=== PATIENT | male | born 1950 | race Caucasian/White ===

== ENCOUNTER 2018-03-26 02:23 | Inpatient (IN) | payer MEDICARE, OTHER ==
[2018-03-26] MEDS ORDERED: NORMAL SALINE 1000 ML 1,000 ML IV ONE (02:43)
[2018-03-26] MEDS ORDERED: DILTIAZEM HCL INJ 25 MG/5 ML VIAL IV ONE ×2 (02:44→04:35)
--- NOTE | 2018-03-26 02:50 | ER Document Report ---
ED General <CATIE BUCK E - Last Filed: 03/26/18 07:19> - General TRAVEL OUTSIDE OF THE [place] IN LAST 30 DAYS: No <IJEOMA COLON - Last Filed: 03/26/18 23:56> - General Chief Complaint: Abdominal Pain Stated Complaint: ABDOMINAL PAIN Time Seen by Provider: 03/26/18 02:36 Notes: Patient is a 67-year-old male presents with complaint of sudden onset severe upper abdominal pain. No chest pain. Pain is mostly epigastric and left upper quadrant. Patient says he feels with her kidney stone disease has more pain in the past with kidney stones. No fevers. Some nausea. No vomiting. No diarrhea. No other complaints at this time. He also presents with atrial fibrillation with rapid ventricular response. He is never had this before. Denies any chest pain associated with this. No other complaints at this time. He received a total of 200 mcg of fentanyl in the ambulance and says his pain is still severe. (IJEOMA COLON) - Related Data Allergies/Adverse Reactions: Penicillins Allergy (Verified 03/26/18 11:45) SWELLING Sulfa (Sulfonamide Antibiotics) Allergy (Verified 03/26/18 11:45) SWELLING Past Medical History - Social History Smoking Status: Unknown if Ever Smoked Frequency of alcohol use: None Drug Abuse: None Family History: Reviewed & Not Pertinent <IJEOMA COLON - Last Filed: 03/26/18 23:56> Review of Systems <CATIE BUCK E - Last Filed: 03/26/18 07:19> <IJEOMA COLON - Last Filed: 03/26/18 23:56> - Review of Systems Notes: My Normal Review Basic REVIEW OF SYSTEMS: CONSTITUTIONAL : Denies fever, chills, or sweats. Denies recent illness. EENT: Denies eye, ear, throat, or mouth pain or symptoms. Denies nasal or sinus congestion. CARDIOVASCULAR: No chest pain RESPIRATORY: Denies cough, cold, or chest congestion. Denies shortness of breath, difficulty breathing, or wheezing. GASTROINTESTINAL: Upper abdominal pain. Some nausea GENITOURINARY: Denies difficulty urinating, painful urination, burning, frequency, or blood in urine. MUSCULOSKELETAL: Denies neck or back pain or joint pain or swelling. SKIN: Denies rash or skin lesions. NEUROLOGICAL: Denies altered mental status or loss of consciousness. Denies headache. Denies weakness or paralysis or loss of use of either side. Denies problems with gait or speech. Denies sensory or motor loss. ALL OTHER SYSTEMS REVIEWED AND NEGATIVE. (IJEOMA COLON) Physical Exam <CATIE BUCK - Last Filed: 03/26/18 07:19> <IJEOMA COLON - Last Filed: 03/26/18 23:56> - Vital signs Vitals: Pulse Ox 96 03/26/18 02:29 - Notes Notes: General Appearance: Well nourished, alert, cooperative, no acute distress, moderate to severe obvious discomfort. Vitals: reviewed, See vital signs table. Head: no swelling or tenderness to the head Eyes: PERRL, EOMI, Conjuctiva clear Mouth: No decreasd moisture Throat: No tonsillar inflammation, No airway obstruction, No lymphadenopathy Lungs: No wheezing, No rales, No rhonci, No accessory muscle use, good air exchange bilaterally. Heart: Normal rate, Regular rythm, No murmur, no rub Abdomen: Normal BS, soft, No rigidity, palpating patient's abdomen does not make the pain any worse., No guarding, no rebound, no abdominal masses, no organomegaly Extremities: strength 5/5 in all extremities, good pulses in all extremities, no swelling or tenderness in the extremities, no edema. Skin: warm, dry, appropriate color, no rash Neuro: speech clear, oriented x 3, normal affect, responds appropriately to questions. (IJEOMA COLON) Course - Laboratory Result Diagrams: 03/26/18 03:20 03/26/18 03:20 <CATIE BUCK - Last Filed: 03/26/18 07:19> - Laboratory Result Diagrams: 03/26/18 11:34 03/26/18 03:20 <IEJOMA COLON - Last Filed: 03/26/18 23:56> - Re-evaluation Re-evalutation: 03/26/18 07:[address] Arreguin (Hospitalist) and he has accepted patient to IMCU. Pt's HR in 110's-120's while on diltiazem 20 mg/hr. BP remains normal and pain controlled. Will add an additional dose of lopressor. (CATIE BUCK) 03/26/18 02:48 Patient has severe abdominal pain that is still hurting despite receiving 200 mcg fentanyl from the ambulance. He also is in atrial fibrillation with rapid ventricular response. He has no previous history of A. fib. Correlation of these to make me concerned for possible ability of ischemic event or even dissection. I therefore ordered a CTA of the chest abdomen pelvis. Patient and his say that he has no history of any type of kidney disease and is followed primary care doctor. I informed him my concerns and the need to do CT scan they are agreeable to it. I have informed the nurse who will go immediately to place a antecubital IV and start IV fluids and taken to CT scan. Cardizem has been ordered as well. EKG does not show any signs of WA at this time. 03/26/18 04:29 CT scan is just above my concern for embolization type pathology. Patient has some evidence of enteritis in the left upper quadrant as well as some evidence of infarction to the right kidney. I did discuss case with Dr. Conteh reviewed the images and is evaluating the patient. He recommends patient placed on a heparin drip. At this time his lactic acid is normal and it is unlikely he will be going through any immediate surgery and therefore heparin drip will be started. The nurse is getting the patient's weight so we can start the heparin bolus and drip appropriately. 03/26/18 06:32 Patient's is Alexi Humphries. Her phone number is [phone]. 03/26/18 23:56 I reevaluated the patient. We are still waiting for bed availability at [facility]. He says his pain is absolutely gone. He looks and feels well. His heart rate is controlled between 90 and 110. Blood pressure is good at 130/84. Informed patient if he has any recurrence of pain or feels unwell at to let me know immediately. Patient agrees and has no further complaints at this time. Dictation of this chart was performed using voice recognition software; therefore, there may be some unintended grammatical errors. (IJEOMA COLON) - Vital Signs Vital signs: Temp Pulse Resp BP Pulse Ox 98.9 F 97 13 120/70 98 03/26/18 23:06 03/26/18 10:41 03/26/18 23:11 03/26/18 23:11 03/26/18 23:11 - Laboratory Laboratory results interpreted by me: 03/26/18 03/26/18 03/26/18 03:20 03:20 03:20 WBC 12.3 H RBC 4.03 L Hgb 13.0 L Plt Count 527 H Seg Neutrophils % 87.6 H Lymphocytes % 7.0 L Absolute Neutrophils 10.8 H Glucose 148 H NT-Pro-B Natriuret Pep 5920 H Albumin 3.3 L Urine Glucose (UA) Urine Ketones Urine Blood 03/26/18 05:10 WBC RBC Hgb Plt Count Seg Neutrophils % Lymphocytes % Absolute Neutrophils Glucose NT-Pro-B Natriuret Pep Albumin Urine Glucose (UA) 50 H Urine Ketones 20 H Urine Blood SMALL H - EKG Interpretation by Me Additional EKG results interpreted by me: 03/26/18 02:50 EKG is reviewed and interpreted by me. EKG shows A. fib with RVR with rate of [address] segment elevation or depression. QRS duration QTc intervals are within normal range. No old EKG available for comparison. (IJEOMA COLON) Discharge - Discharge Admitting Provider: Hospitalist - [facility] Unit Admitted: IMCU <CATIE BUKC - Last Filed: 03/26/18 07:19> <IJEOMA COLON - Last Filed: 03/26/18 23:56> - Discharge Clinical Impression: Atrial fibrillation with rapid ventricular response, Ischemia of kidney, Acute abdominal pain Condition: Stable Disposition: ADMITTED INPATIENT
[2018-03-26] MEDS ORDERED: FENTANYL CITRATE INJ/PF 100 MCG/2 ML AMPUL IV ONE ×3 (03:25→04:35)
--- NOTE | 2018-03-26 03:25 | RADIOLOGY REPORT (SQ) ---
EXAM DESCRIPTION: XR CHEST 1 VIEW COMPLETED DATE/TME: 03/26/2018 02:43 CLINICAL HISTORY: upper abdominal pain COMPARISON: None available FINDINGS: Single frontal view of the chest. Atherosclerotic calcification and tortuosity of the thoracic aorta. Cardiomegaly. Leads overlie the chest. No consolidation, pneumothorax, or pleural effusion. Healed left rib fractures. Upper abdominal soft tissues are unremarkable. IMPRESSION: 1. No acute pulmonary process identified. Cardiomegaly.
[2018-03-26 03:37] LABS: ABSOLUTE LYMPHOCYTES (AUTO) 0.9 10^3/uL (0.5-4.7); ABSOLUTE MONOCYTES (AUTO) 0.6 10^3/uL (0.1-1.4); ABSOLUTE NEUT (AUTO) 10.8 10^3/uL (1.7-8.2); BASOPHILS % (AUTO) 0.3 % (0-2); HEMATOCRIT 38.1 % (37.9-51.0); MEAN CORPUSCULAR HEMOGLOBIN 32.3 pg (27.0-33.4); MEAN CORPUSCULAR HGB CONC 34.3 g/dL (32.0-36.0); MEAN CORPUSCULAR VOLUME 94 fl (80-97); MONOCYTES % (AUTO) 5.1 % (3-13); PLATELET COUNT 527 10^3/uL (150-450); RED BLOOD COUNT 4.03 10^6/uL (4.35-5.55); RED CELL DISTRIBUTION WIDTH 13.3 % (11.5-14.0); SEGMENTED NEUTROPHILS % (AUTO) 87.6 % (42-78); TOTAL CELLS COUNTED % (AUTO) 100 %; WHITE BLOOD COUNT 12.3 10^3/uL (4.0-10.5)
[2018-03-26] MEDS ORDERED: HYDROMORPHONE HCL INJ/PF 2 MG/ML AMPULE IV ONE (03:42)
[2018-03-26 03:52] LABS: ALANINE AMINOTRANSFERASE 25 U/L (21-72); ALBUMIN 3.3 g/dL (3.5-5.0); ALKALINE PHOSPHATASE 54 U/L (38-126); ANION GAP 11 (5-19); ASPARTATE AMINO TRANSFERASE 22 U/L (17-59); BILIRUBIN,DIRECT 0.3 mg/dL (0.0-0.4); BILIRUBIN,TOTAL 0.4 mg/dL (0.2-1.3); BLOOD UREA NITROGEN 14 mg/dL (7-20); CALCIUM 8.9 mg/dL (8.4-10.2); CARBON DIOXIDE 30 mmol/L (22-30); CHLORIDE 98 mmol/L (98-107); GLUCOSE 148 mg/dL (75-110); LIPASE 40.4 U/L (23-300); POTASSIUM 3.9 mmol/L (3.6-5.0); SODIUM 139.4 mmol/L (137-145); TOTAL PROTEIN 6.3 g/dL (6.3-8.2)
--- NOTE | 2018-03-26 03:55 | RADIOLOGY REPORT (SQ) ---
EXAM DESCRIPTION: CT ABDOMEN PELVIS WITH IV CONTRAST, CT CHEST ANGIOGRAPHY WITH IV CONTRAST COMPLETED DATE/TME: 03/26/2018 02:43 CLINICAL HISTORY: severe pain COMPARISON: None Available. TECHNIQUE: CTA of the chest, abdomen and pelvis performed following IV administration of 100 mL of Isovue-370. 3-D/MIP reformatted images available. Delayed images of the abdomen obtained. DLP: 1524.42 mGycm FINDINGS: Bones: No destructive bone lesions identified. FINDINGS: CTA: Measurements: Ascending thoracic aorta 3.9 cm Aortic arch: 3.0 cm. Mid descending thoracic aorta: 3.3 cm Infrarenal abdominal aorta: 2.3 cm. Mild atherosclerotic plaque of the thoracic aorta without evidence of dissection, penetrating ulcer, or intramural hematoma. There is in-line flow from the abdominal aorta into the common iliac, external iliac, and common femoral arteries without evidence of occlusion or stenosis. The origins of the great vessels are patent. The visualized celiac artery has normal branch pattern without evidence of stenosis. Superior mesenteric artery is widely patent. Replaced right hepatic artery. The origins of the renal arteries are widely patent. No definite accessory renal arteries identified. No visceral and renal artery pseudoaneurysm identified. Chest: Thyroid:No abnormalities of the visualized thyroid. Pulmonary arteries: The main pulmonary artery is dilated. No pulmonary embolus identified. Heart: Cardiomegaly with coronary artery atherosclerosis. No significant pericardial effusion. Lymph Nodes:No enlarged mediastinal lymph nodes identified. Esophagus: Small hiatal hernia. Other:No additional findings. Lungs: Minimal dependent atelectasis. No lobar consolidation. Pleura:No pleural effusion or pneumothorax. Trachea/Airways:No abnormalities of the visualized trachea or airways. Abdomen: Liver: The liver has normal size and density. No intrahepatic mass or biliary dilatation. Gallbladder: Cholelithiasis. Spleen, Pancreas, and Adrenal Glands: The spleen, pancreas, and adrenal glands are unremarkable. Kidneys: There are irregular wedge-shaped areas of hypodensity throughout the right kidney. Bosniak class I left renal cysts. Vasculature: IVC is unremarkable. Stomach: The stomach and duodenum have normal course. Other: No free intraperitoneal air. No free fluid or lymphadenopathy. Pelvis: Bladder: Urinary bladder is unremarkable. Bowel: Scattered diverticula throughout the colon. No pericolic fat stranding. No dilated loops of large or small bowel. Short segment wall thickening of a loop of small bowel in the left upper abdomen with adjacent inflammatory change. The colon is not well evaluated due to underdistention. Appendix: Normal appendix. Pelvis: Prostate is not enlarged. IMPRESSION: 1. Wedge-shaped areas of hypodensity throughout the right kidney are concerning for ischemic necrosis or late changes of pyelonephritis. Given degree of liquefaction early abscess formation is a possibility however no well-circumscribed thick-walled fluid collection identified at this time. 2. Short segment of wall thickening with adjacent inflammatory change of small bowel in the left upper abdomen concerning for enteritis. This could be of infectious, inflammatory, or ischemic etiology. 3. Diverticulosis without evidence of acute diverticulitis. 4. Cholelithiasis. 5. Coronary artery atherosclerosis and cardiomegaly. 6. No pulmonary embolus. 7. No evidence of aortic dissection or aneurysm. This exam was performed according to our departmental dose-optimization program, which includes automated exposure control, adjustment of the mA and/or kV according to patient size and/or use of iterative reconstruction technique.
[2018-03-26] MEDS ORDERED: DILTIAZEM HCL INJ 25 MG/5 ML VIAL ONE (04:40)
[2018-03-26] MEDS ORDERED: HEPARIN SODIUM,PORCINE/D5W 25,000 UNIT/250 ML RTUINJ IV PRN (04:43)
[2018-03-26] MEDS ORDERED: HEPARIN SOD (PORCINE) 1,000 UNIT/ML 10 ML VIAL IV ONE ×2 (04:43→05:04)
[2018-03-26] MEDS: DILTIAZEM HCL/D5W 125 MG/125 ML RTUINJ IV PRN ×3 (04:50→20:10)
[2018-03-26] MEDS ORDERED: METOPROLOL TARTRATE PF/INJ 5 MG/5 ML SDV IV ONE ×3 (05:09→07:25)
--- NOTE | 2018-03-26 05:14 | PDOC CONSULTATION ---
Consultation Consult Date: 03/26/18 Consult reason:: Rule out ischemic intestines History of Present Illness Admission Date/PCP: VIRGILIO ASTUDILLO Patient complains of: Abdominal pain History of Present Illness: ISAAC JO is a 67 year old male The patient is a 67-year-old white male, originally from [place], living his needs very was brought to the emergency department by ground rescue complaining of intense left upper quadrant abdominal pain. The patient is interviewed by Dr. Conthe after he is receiving fentanyl so the encounter is limited in that regard. According to the patient and the patient's the patient had been in his usual state of good health, walking 1-1/2 miles a day participating in therapy sessions when he developed weakness, tunnel vision, and some lethargy. This was also associated with episodes of right upper quadrant pain. The symptoms lasted for approximately 2 and half days. Also associated with nausea and vomiting. He was seen by primary care physician's needs very, and arrangements were made for him to get worked up for possible gallbladder disease later this week. Patient's symptoms improved then last night approximately 10 PM he developed initially right upper quadrant pain that then radiated to the left upper quadrant. Last bowel movement yesterday. Since pain did not relieve an emergency rescue was called. In the emergency department the patient was found to have rapid atrial fibrillation. He was given Cardizem, IV fluids, and pain medication. CTA of the chest, and abdominal scan showed gallstones, hemic changes of the right kidney, and possible ischemic changes to a segment of jejunum in the left upper quadrant. Mild atherosclerotic changes in diffuse diverticulosis is also identified. Surgery was consulted. Patient denies history of gallbladder disease. He may have had remote gallbladder attacks in the past. He denies history of myocardial infarction, stroke, thromboembolic disease. He has never had a colonoscopy. He was hospitalized years ago for some viral syndrome without sequelae. Past Medical History Past Medical History: Hypertension, hard of hearing due to chronic otitis media left side. Medical History: None Cardiac Medical History: Reports: Hypertension Past Surgical History Past Surgical History: Left wrist hand surgery Social History Information Source: Patient Smoking Status: Never Smoker Hx Recreational Drug Use: No Hx Prescription Drug Abuse: No Family History Family History: Reviewed & Not Pertinent Parental Family History Reviewed: Yes Children Family History Reviewed: Yes Sibling(s) Family History Reviewed.: Yes Medication/Allergy Allergies/Adverse Reactions: Sulfa (Sulfonamide Antibiotics) Allergy (Verified 03/26/18 02:41) Review of Systems ROS unobtainable: Due to mental status, Other - Some review of systems betito with ; patient just received fentanyl unable to participate clearly in complete review of systems Constitutional: PRESENT: as per HPI Eyes: PRESENT: as per HPI Ears: PRESENT: as per HPI Gastrointestinal: PRESENT: as per HPI Neurological: PRESENT: weakness Physical Exam Vital Signs: Temp Pulse Resp BP Pulse Ox 14 138/102 H 98 03/26/18 04:01 03/26/18 04:01 03/26/18 04:01 General appearance: PRESENT: other - Patient agitated Head exam: PRESENT: normocephalic Eye exam: PRESENT: EOMI Mouth exam: PRESENT: dry mucosa Neck exam: PRESENT: full ROM Cardiovascular exam: PRESENT: irregular rhythm, tachycardia, other Pulses: PRESENT: normal carotid pulses, normal radial pulses, normal femoral pulses, +1 pedal pulses bilateral Vascular exam: PRESENT: normal capillary refill GI/Abdominal exam: PRESENT: other - Soft, minimally tender left upper quadrant; no peritoneal signs no guarding. Rectal exam: PRESENT: deferred Extremities exam: PRESENT: full ROM Musculoskeletal exam: PRESENT: full ROM Neurological exam: PRESENT: alert, awake, oriented to person, oriented to place , oriented to time, oriented to situation Psychiatric exam: PRESENT: agitated Results Laboratory Results: 03/26/18 03:20 03/26/18 03:20 03/26/18 03/26/18 03/26/18 03:20 03:20 03:20 WBC 12.3 H RBC 4.03 L Hgb 13.0 L Hct 38.1 MCV 94 MCH 32.3 MCHC 34.3 RDW 13.3 Plt Count 527 H Seg Neutrophils % 87.6 H Lymphocytes % 7.0 L Monocytes % 5.1 Eosinophils % 0.0 Basophils % 0.3 Absolute Neutrophils 10.8 H Absolute Lymphocytes 0.9 Absolute Monocytes 0.6 Absolute Eosinophils 0.0 Absolute Basophils 0.0 Sodium 139.4 Potassium 3.9 Chloride 98 Carbon Dioxide 30 Anion Gap 11 BUN 14 Creatinine 0.71 Est GFR ( Amer) > 60 Est GFR (Non-Af Amer) > 60 Glucose 148 H Lactic Acid 1.3 Calcium 8.9 Total Bilirubin 0.4 AST 22 ALT 25 Alkaline Phosphatase 54 Total Protein 6.3 Albumin 3.3 L Lipase 40.4 03/26/18 03:20 Troponin I < 0.012 Impressions: Abdomen/Pelvis CTA 03/26/18 02:43 IMPRESSION: 1. Wedge-shaped areas of hypodensity throughout the right kidney are concerning for ischemic necrosis or late changes of pyelonephritis. Given degree of liquefaction early abscess formation is a possibility however no well-circumscribed thick-walled fluid collection identified at this time. 2. Short segment of wall thickening with adjacent inflammatory change of small bowel in the left upper abdomen concerning for enteritis. This could be of infectious, inflammatory, or ischemic etiology. 3. Diverticulosis without evidence of acute diverticulitis. 4. Cholelithiasis. 5. Coronary artery atherosclerosis and cardiomegaly. 6. No pulmonary embolus. 7. No evidence of aortic dissection or aneurysm. This exam was performed according to our departmental dose-optimization program, which includes automated exposure control, adjustment of the mA and/or kV according to patient size and/or use of iterative reconstruction technique. Chest X-Ray 03/26/18 02:43 IMPRESSION: 1. No acute pulmonary process identified. Cardiomegaly. Chest/Abdomen CTA 03/26/18 02:43 IMPRESSION: 1. Wedge-shaped areas of hypodensity throughout the right kidney are concerning for ischemic necrosis or late changes of pyelonephritis. Given degree of liquefaction early abscess formation is a possibility however no well-circumscribed thick-walled fluid collection identified at this time. 2. Short segment of wall thickening with adjacent inflammatory change of small bowel in the left upper abdomen concerning for enteritis. This could be of infectious, inflammatory, or ischemic etiology. 3. Diverticulosis without evidence of acute diverticulitis. 4. Cholelithiasis. 5. Coronary artery atherosclerosis and cardiomegaly. 6. No pulmonary embolus. 7. No evidence of aortic dissection or aneurysm. This exam was performed according to our departmental dose-optimization program, which includes automated exposure control, adjustment of the mA and/or kV according to patient size and/or use of iterative reconstruction technique. Assessment & Plan - Diagnosis (1) Acute abdominal pain Is this a current diagnosis for this admission?: Yes Plan: The patient has a history of subacute abdominal pain initially right upper quadrant now left upper quadrant. Episodes of right upper quadrant pain, weakness, visual disturbances may have been secondary to thromboembolic phenomena. The CT scan findings this morning suggest getting of a loop of jejunum and juan josé-luminal inflammation consistent with infection versus ischemia versus other causes. In light of the acute hypoperfusion of the right kidney, atrial fibrillation, new onset, and cardiomegaly, the clinical picture is very concerning for acute arterial embolic events to multiple intra- abdominal viscera. The CT scans of the chest and abdomen demonstrate patency of the celiac axis and its respective branches, as well as the SMA. JONNATHAN is poorly visualized. Recommendations: 1. There is no contraindication to anticoagulation so I suggested the emergency department proceed with complete anticoagulation 2. Agree with efforts to control the rapid ventricular response 3. The constellation of multiple acute and chronic medical problems particularly with regards to the cardiovascular system, and the limited resources at [facility], I believe this patient should be transferred to a tertiary care institution. Discussed with Dr. Morse. 4. I do not believe she needs immediate exploration; he does not have an acute abdomen, and furthermore he has not been treated medically for this acute problem. (2) Atrial fibrillation with rapid ventricular response Is this a current diagnosis for this admission?: Yes (3) Thrombocytosis Is this a current diagnosis for this admission?: Yes (4) Gallstone Is this a current diagnosis for this admission?: Yes (5) Ischemia of kidney Is this a current diagnosis for this admission?: Yes (6) Abdominal aortic atherosclerosis Is this a current diagnosis for this admission?: Yes (8) Cardiomegaly Is this a current diagnosis for this admission?: Yes (9) Diverticulosis Is this a current diagnosis for this admission?: Yes - Time Time Spent: 50 to 70 Minutes Smoking Cessation Education: over 10 minutes Medications reviewed and adjusted accordingly: Yes Anticipated discharge: Home - Inpatient Certification Based on my medical assessment, after consideration of the patient's comorbidities, presenting symptoms, or acuity I expect that the services needed warrant INPATIENT care.: Yes I certify that my determination is in accordance with my understanding of Medicare's requirements for reasonable and necessary INPATIENT services [42 CFR 412.3e].: Yes Medical Necessity: Need For IV Fluids, Need For Continuous Telemetry Monitoring , Need for Pain Control, Risk of Complication if Not Cared For in Hospital
[2018-03-26 05:29] LABS: INTERNATIONAL RATION (INR) 1.02; PROTHROMBIN TIME 13.9 SEC (11.4-15.4)
[2018-03-26 05:30] LABS: APPEARANCE,URINE CLEAR; BILIRUBIN,URINE NEGATIVE (NEGATIVE); COLOR,URINE STRAW; GLUCOSE, URINE 50 mg/dL (NEGATIVE); KETONES,URINE 20 mg/dL (NEGATIVE); LEUKOCYTE ESTERASE,URINE NEGATIVE (NEGATIVE); NITRITE,URINE NEGATIVE (NEGATIVE); PROTEIN,URINE NEGATIVE (NEGATIVE); URINE SPECIFIC GRAVITY 1.031; UROBILINOGEN,URINE NEGATIVE mg/dL (<2.0)
[2018-03-26 05:30] LABS: PARTIAL THROMBOPLASTIN TIME 30.3 SEC (23.5-35.8)
--- NOTE | 2018-03-26 07:37 | EKG REPORT ---
SEVERITY:- ABNORMAL ECG - ATRIAL FIBRILLATION, V-RATE 77-170 LEFT ANTERIOR FASCICULAR BLOCK ABNORMAL T, CONSIDER ISCHEMIA, ANT-LAT LEADS : Confirmed by: Barney Garcia MD 26-Mar-2018 07:36:52
[2018-03-26] MEDS ORDERED: ACETAMINOPHEN 325 MG TABLET PO PRN (08:01)
[2018-03-26] MEDS ORDERED: ONDANSETRON HCL INJ/PF 4 MG/2 ML SDV IV PRN (08:01)
[2018-03-26] MEDS ORDERED: LEVALBUTEROL HCL NEB 1.25 MG/3 ML AMPUL NEB PRN (08:01)
[2018-03-26] MEDS ORDERED: OXYCODONE-ACETAMINOPHEN 5-325 MG TABLET PO PRN (08:01)
[2018-03-26] MEDS ORDERED: HYDRALAZINE HCL INJ/PF 20 MG/1 ML SDV IV PRN (08:18)
[2018-03-26] MEDS ORDERED: LORAZEPAM INJ 2 MG/1 ML VIAL IV PRN (08:22)
[2018-03-26] MEDS ORDERED: RINGERS SOLUTION,LACTATED 1,000 ML IV PRN (08:24)
[2018-03-26] MEDS ORDERED: CIPROFLOXACIN 400 MG/D5W RTU 400 MG/200 ML RTUPB IV ONE (09:57)
[2018-03-26] MEDS ORDERED: PANTOPRAZOLE SODIUM 40 MG VIAL IV SCH (10:00)
[2018-03-26] MEDS ORDERED: ASPIRIN 81 MG TABLET, CHEWABLE PO SCH (10:00)
[2018-03-26] MEDS ORDERED: DOCUSATE SODIUM 100 MG CAPSULE PO SCH (10:00)
[2018-03-26] MEDS: METRONIDAZOLE 500 MG/NS RTU 100 ML IV SCH ×2 (11:36→18:32)
[2018-03-26] MEDS: METOPROLOL TARTRATE 25 MG TABLET PO SCH ×2 (11:37→22:12)
[2018-03-26 11:59] LABS: HEMATOCRIT 37.6 % (37.9-51.0); HEMOGLOBIN 12.7 g/dL (13.5-17.0); MEAN CORPUSCULAR HEMOGLOBIN 32.1 pg (27.0-33.4); MEAN CORPUSCULAR HGB CONC 33.9 g/dL (32.0-36.0); MEAN CORPUSCULAR VOLUME 95 fl (80-97); PLATELET COUNT 543 10^3/uL (150-450); RED BLOOD COUNT 3.97 10^6/uL (4.35-5.55); RED CELL DISTRIBUTION WIDTH 13.9 % (11.5-14.0); WHITE BLOOD COUNT 12.1 10^3/uL (4.0-10.5)
[2018-03-26 12:26] LABS: ABSOLUTE LYMPHOCYTES# (MANUAL) 1.5 10^3/uL (0.5-4.7); ABSOLUTE MONOCYTES # (MANUAL) 1.5 10^3/uL (0.1-1.4); ABSOLUTE NEUTROPHILS# (MANUAL) 9.2 10^3/uL (1.7-8.2); BASOPHILS % (MANUAL) 0 % (0-2); EOSINOPHILS % (MANUAL) 0 % (0-6); LYMPHOCYTES % (MANUAL) 12 % (13-45); MONOCYTES % (MANUAL) 12 % (3-13); RBC MORPHOLOGY COMMENT NORMO-CYTIC/CHROMIC; SEGMENTED NEUTROPHILS % (MAN) 76 % (42-78); TOTAL CELLS COUNTED 100
[2018-03-26 12:27] LABS: PLATELET COMMENT INCREASED
--- NOTE | 2018-03-26 16:09 | PDOC TRANSFER SUMMARY ---
General Admission Date/PCP: 03/26/18 07:31 ANIYA MUELLERNOELLE, [facility]-C Admission Date: 03/25/18 Transfer Date: 03/26/18 Accepting Facility: [facility] Accepting Physician: Dr. Luna, Medicine Group Resuscitation Status: Full Code - Transfer Diagnosis (1) Ischemia of kidney Is this a current diagnosis for this admission?: Yes Diagnosis Summary: CT Abd/Pelvis shows right renal wedge infarct, continue IV heparin infusion (2) Atrial fibrillation with rapid ventricular response Is this a current diagnosis for this admission?: Yes Diagnosis Summary: continue Diltiazem infusion, and oral Metoprolol 12.5mg BID (3) Abdominal aortic atherosclerosis Is this a current diagnosis for this admission?: Yes Diagnosis Summary: CT abd/pelvis showing atherosclerosis, now with renal injury (4) Acute abdominal pain Is this a current diagnosis for this admission?: Yes Diagnosis Summary: some improvement in abdominal pain with Fentanyl given in the ED, and IVF fluid support and Heparin infusion. (5) Cardiomegaly Is this a current diagnosis for this admission?: Yes Diagnosis Summary: Will need careful monitoring of volume status. CONSTANTINO needed for further thrombus evaluation. - Transfer Medications Transfer Medications: Current Medications Acetaminophen (Tylenol 325 Mg Tablet) 650 mg PO Q4HP PRN PRN Reason: for pain and temp >101 Stop: 04/25/18 08:00 Aspirin (Aspirin 81 Mg Chewable Tablet) 81 mg PO DAILY [facility] Stop: 04/25/18 09:59 Last Admin: 03/26/18 11:37 Dose: 81 mg Docusate Sodium (Colace 100 Mg Capsule) 100 mg PO DAILY [facility] Stop: 04/25/18 09:59 Last Admin: 03/26/18 11:37 Dose: 100 mg Hydralazine HCl (Apresoline Inj/Pf 20 Mg/1 Ml Sdv) 10 mg IV Q4HP PRN PRN Reason: for SBP > 160, or DBP > 100 Stop: 04/25/18 08:17 Heparin Sodium/Dextrose (Heparin Rtu 25,000 Unit/250 Ml D5w Premix) 25,000 unit in 250 mls @ 0 mls/hr IV CONTINUOUS PRN; Protocol; Titrate PRN Reason: THIS MED IS NOT "PRN" Stop: 04/25/18 04:42 Last Admin: 03/26/18 05:36 Dose: 250 ml Diltiazem HCl (Cardizem Rtu Inj 125 Mg-D5w 125 Ml Premix) 125 mg in 125 mls @ 0 mls/hr IV CONTINUOUS PRN; Protocol; Titrate PRN Reason: THIS MED IS NOT "PRN" Stop: 04/25/18 04:51 Last Admin: 03/26/18 08:54 Dose: 125 ml Lactated Ringer's (Lactated Ringers 1000 Ml Iv Soln) 1,000 mls @ 75 mls/hr IV CONTINUOUS PRN PRN Reason: THIS MED IS NOT "PRN" Stop: 04/25/18 08:23 Metronidazole (Flagyl Rtu 500 Mg/Ns 100ml Premix) 100 mls @ 100 mls/hr IV Q8H [facility] Stop: 04/02/18 09:59 Last Admin: 03/26/18 11:36 Dose: 100 ml Levalbuterol HCl (Xopenex Neb 1.25 Mg/3 Ml Ampul) 1.25 mg NEB RTQ4HP PRN PRN Reason: SHORTNESS OF BREATH Stop: 04/25/18 08:00 Lorazepam (Ativan Inj 2 Mg/1 Ml Vial) 1 mg IV Q4HP PRN PRN Reason: ANXIETY/AGITATION Stop: 04/02/18 08:21 Metoprolol Tartrate (Lopressor 25 Mg Tablet) 12.5 mg PO Q12 [facility] Stop: 04/25/18 09:59 Last Admin: 03/26/18 11:37 Dose: 12.5 mg Ondansetron HCl (Zofran Inj/Pf 4 Mg/2 Ml Sdv) 4 mg IV Q4HP PRN PRN Reason: FOR NAUSEA/VOMITING Stop: 04/25/18 08:00 Oxycodone/Acetaminophen (Percocet 5-325 Mg Tablet) 1 tab PO Q4HP PRN PRN Reason: for pain scale > 6/10 Stop: 04/02/18 08:00 Pantoprazole Sodium (Protonix Iv Inj 40 Mg Vial) 40 mg IV DAILY [facility] Stop: 03/29/18 09:59 Last Admin: 03/26/18 11:38 Dose: 40 mg - Allergies Allergies/Adverse Reactions: Penicillins Allergy (Verified 03/26/18 11:45) SWELLING Sulfa (Sulfonamide Antibiotics) Allergy (Verified 03/26/18 11:45) SWELLING - Diet/Activity Discharge Diet: Other (Comments) - NPO Discharge Activity: Bedrest Hospital Course Hospital Course: 67-year-old male presenting with severe abdominal pain worsening over the last prior several days. Initially occurred 1 week ago with nausea and vomiting described. Patient was noted in the emergency department to have atrial fibrillation with rapid ventricular response, rate in the 140s. He was started on Cardizem drip. He was given 2 IV doses of metoprolol, and started on oral metoprolol 12.5mg BID. CT abdomen pelvis showed right renal wedge infarct, and left upper quadrant small bowel inflammatory changes. SMA, JONNATHAN and celiac arteries were patent on CT. Unclear if inflammatory bowel changes are secondary to embolic injury or infectious. Patient was evaluated by general surgery. It was felt the patient would need tertiary care, specifically vascular surgery to assist in his care. This was discussed with the patient and his at the bedside, and they agreed to a [place] transfer. Dr. Luna from [place] graciously accepted the patient onto the medical service. Dr. Levine from vascular surgery is aware of this patient in [place] and he accepts as well. Patient at present has improvement in his abdominal pain since starting heparin infusion therapy and continued on gentle IV fluid support. A transthoracic echo was performed without finding an intra- cardiac thrombus. Cardiology recommends that this patient receive a transesophageal echo in [place], and have the [place] cardiology team follow him as well. At present his abdominal pain has improved on pain medicine , IV heparin, and IV fluid support. Lactic acid is 1.3, WBC is 12.8. Stable vital signs. Physical Exam Vital Signs: Temp Pulse Resp BP Pulse Ox 97 14 115/71 98 03/26/18 10:41 03/26/18 14:36 03/26/18 14:36 03/26/18 14:36 General appearance: PRESENT: mild distress Head exam: PRESENT: atraumatic, normocephalic Eye exam: PRESENT: EOMI, PERRLA Ear exam: PRESENT: normal external ear exam. ABSENT: bleeding Mouth exam: PRESENT: moist, neck supple Throat exam: ABSENT: tonsillar exudate, tonsillogmegaly Respiratory exam: ABSENT: crackles, prolonged expiratory phas, rales, rhonchi, wheezes Cardiovascular exam: PRESENT: irregular rhythm, +S1, +S2, tachycardia Pulses: PRESENT: normal radial pulses, normal dorsalis pedis pul GI/Abdominal exam: PRESENT: soft, tenderness - epigastric and right>left upper quadrant tenderness Extremities exam: ABSENT: calf tenderness, joint swelling, tenderness Musculoskeletal exam: PRESENT: full ROM, normal inspection Neurological exam: PRESENT: alert, oriented to person, oriented to place, oriented to time, oriented to situation Psychiatric exam: ABSENT: agitated, anxious, manic Focused psych exam: ABSENT: paranoid, pressured speech Skin exam: PRESENT: normal color. ABSENT: erythema, jaundice Results Laboratory Results: 03/26/18 11:34 03/26/18 03/26/18 03/26/18 09:29 11:34 11:34 WBC 12.1 H RBC 3.97 L Hgb 12.7 L Hct 37.6 L MCV 95 MCH 32.1 MCHC 33.9 RDW 13.9 Plt Count 543 H Seg Neutrophils % Not Reportable Lymphocytes % Not Reportable Monocytes % Not Reportable Eosinophils % Not Reportable Basophils % Not Reportable Absolute Neutrophils Not Reportable Absolute Lymphocytes Not Reportable Absolute Monocytes Not Reportable Absolute Eosinophils Not Reportable Absolute Basophils Not Reportable Lactic Acid 0.9 TSH 3.28 Impressions: Abdomen/Pelvis CTA 03/26/18 02:43 IMPRESSION: 1. Wedge-shaped areas of hypodensity throughout the right kidney are concerning for ischemic necrosis or late changes of pyelonephritis. Given degree of liquefaction early abscess formation is a possibility however no well-circumscribed thick-walled fluid collection identified at this time. 2. Short segment of wall thickening with adjacent inflammatory change of small bowel in the left upper abdomen concerning for enteritis. This could be of infectious, inflammatory, or ischemic etiology. 3. Diverticulosis without evidence of acute diverticulitis. 4. Cholelithiasis. 5. Coronary artery atherosclerosis and cardiomegaly. 6. No pulmonary embolus. 7. No evidence of aortic dissection or aneurysm. This exam was performed according to our departmental dose-optimization program, which includes automated exposure control, adjustment of the mA and/or kV according to patient size and/or use of iterative reconstruction technique. Chest X-Ray 03/26/18 02:43 IMPRESSION: 1. No acute pulmonary process identified. Cardiomegaly. Chest/Abdomen CTA 03/26/18 02:43 IMPRESSION: 1. Wedge-shaped areas of hypodensity throughout the right kidney are concerning for ischemic necrosis or late changes of pyelonephritis. Given degree of liquefaction early abscess formation is a possibility however no well-circumscribed thick-walled fluid collection identified at this time. 2. Short segment of wall thickening with adjacent inflammatory change of small bowel in the left upper abdomen concerning for enteritis. This could be of infectious, inflammatory, or ischemic etiology. 3. Diverticulosis without evidence of acute diverticulitis. 4. Cholelithiasis. 5. Coronary artery atherosclerosis and cardiomegaly. 6. No pulmonary embolus. 7. No evidence of aortic dissection or aneurysm. This exam was performed according to our departmental dose-optimization program, which includes automated exposure control, adjustment of the mA and/or kV according to patient size and/or use of iterative reconstruction technique. Plan Discharge Plan: 1. Vascular embolic ischemic injury continue heparin infusion therapy. Have vascular surgery follow in the tertiary care hospital. 2. Atrial fibrillation with RVR Continue patient on IV diltiazem infusion, continue oral metoprolol dosing at 12 -1/2 twice daily. Currently stable vital signs, continue to monitor closely. 3. Wedge shaped right renal infarct continue heparin therapy. 4. Small bowel inflammation possible embolic injury and possible pending bowel necrosis Lactic acid was non-elevated WBC: 12.8 elevated, stable vitals, afebrile at present. Continue empiric Ciprofloxacin IV and Flagyl IV. 5. Hypertension. normal range BP at present prn IV hydralazine continue Diltiazem and Metoprolol as listed above. Time Spent: Greater than 30 Minutes
--- NOTE | 2018-03-26 17:42 | XCELERA REPORT ---
[address] [address] Transthoracic Echocardiogram Report Name: ISAAC JO Age: 67 yrs Gender: Male : 1950 Patient Status: Inpatient Patient Location: [place] [address]^A Study Date: 03/26/2018 01:18 PM Procedure: A two-dimensional transthoracic echocardiogram with color flow and Doppler was performed. The study was technically difficult with many images being suboptimal in quality. Reason For Study: HEART FAILURE / ATRIAL FIBRILLATION History: HEART FAILURE / ATRIAL FIBRILLATION. Ordering Physician: TINO DO Performed By: Anne Marie Sanchez Interpretation Summary The left ventricle is normal in size. There is normal left ventricular wall thickness. LV EF is 60% Left ventricular systolic function is normal. The left ventricular wall motion is normal. Septal motion is consistent with conduction abnormality There is no thrombus. The right ventricle is mildly dilated. The right atrium is normal. The left atrium is mildly dilated. There is no evidence of mitral valve prolapse. There is no vegetation seen on the mitral valve. There is no mitral valve stenosis. Mild , perhaps moderate MR. The aortic valve is mildly calcified There is no aortic valve stenosis There is no LVOT obstruction. There is a mild amount of aortic regurgitation There is no tricuspid stenosis. There is a trace amount of tricuspid regurgitation There is mild pulmonary hypertension by echo RVSP is 38 to 43 mm of Hg , with RA mean of 5 to 10. There is no pericardial effusion. MMode/2D Measurements & Calculations RVDd: 3.1 cm LVIDd: 5.7 cm FS: 34.4 % Ao root diam: IVSd: 1.0 cm LVIDs: 3.8 cm EDV(Teich): 3.2 cm LVPWd: 0.99 cm 162.9 ml Ao root area: ESV(Teich): 7.9 cm2 60.7 ml EF(Teich): 62.8 % EDV(MOD-sp4): SV(MOD-sp4): 112.5 ml 44.3 ml ESV(MOD-sp4): 68.2 ml EF(MOD-sp4): 39.4 % Doppler Measurements & Calculations Ao V2 max: AI max jeremiah: LV V1 max PG: PA V2 max: 121.4 cm/sec 291.9 cm/sec 1.9 mmHg 51.6 cm/sec Ao max P.9 mmHgAI max P.1 mmHg LV V1 max: PA max PG: AI dec slope: 69.1 cm/sec 1.1 mmHg 103.6 cm/sec2 AI P1/2t: 825.3 msec TR max jeremiah: 268.2 cm/sec TR max P.0 mmHg Left Ventricle The left ventricle is normal in size. There is normal left ventricular wall thickness. LV EF is 60%. Left ventricular systolic function is normal. LV diastolic function could not be adequately assessed due to atrial fibrilation. The left ventricular wall motion is normal. Septal motion is consistent with conduction abnormality. There is no thrombus. Right Ventricle The right ventricle is mildly dilated. Atria The right atrium is normal. The left atrium is mildly dilated. Mitral Valve There is no evidence of mitral valve prolapse. There is no vegetation seen on the mitral valve. There is no mitral valve stenosis. Mild , perhaps moderate MR. Aortic Valve The aortic valve opens well. The aortic valve is mildly calcified. There is no aortic valvular vegetation. There is no aortic valve stenosis. There is no LVOT obstruction. There is a mild amount of aortic regurgitation. Tricuspid Valve There is no tricuspid stenosis. There is a trace amount of tricuspid regurgitation. There is mild pulmonary hypertension by echo. RVSP is 38 to 43 mm of Hg , with RA mean of 5 to 10. Pulmonic Valve There is no pulmonic valvular stenosis. There is no pulmonic valvular regurgitation. Great Vessels The aortic root is not well visualized but is probably normal size. Effusions There is no pericardial effusion. : TINO DO > Lucita Holt
[2018-03-27 01:00] VITALS: BP 126/81
--- NOTE | 2018-03-27 10:15 | PDOC H&P ---
History of Present Illness Admission Date/PCP: 03/26/18 07:31 ANIYA LAM, GIDE[facility]-C History of Present Illness: ISAAC JO is a 67 year old male presenting with severe abdominal pain worsening over the last prior several days. Initially occurred 1 week ago with nausea and vomiting described. Patient was noted in the emergency department to have atrial fibrillation with rapid ventricular response, rate in the 140s. He was started on Cardizem drip. He was given 2 IV doses of metoprolol, and started on oral metoprolol 12.5mg BID. CT abdomen pelvis showed right renal wedge infarct, and left upper quadrant small bowel inflammatory changes. SMA, JONNATHAN and celiac arteries were patent on CT. Unclear if inflammatory bowel changes are secondary to embolic injury or infectious. Patient was evaluated by general surgery. It was felt the patient would need tertiary care, specifically vascular surgery to assist in his care. This was discussed with the patient and his at the bedside, and they agreed to a [place] transfer. Dr. Luna from [place] graciously accepted the patient onto the medical service. Dr. Levine from vascular surgery is aware of this patient in [place] and he accepts as well. Patient at present has improvement in his abdominal pain since starting heparin infusion therapy and continued on gentle IV fluid support. A transthoracic echo was performed without finding an intra-cardiac thrombus. Cardiology recommends that this patient receive a transesophageal echo in [place], and have the [place] cardiology team follow him as well. At present his abdominal pain has improved on pain medicine, IV heparin, and IV fluid support. Lactic acid is 1.3, WBC is 12.8. Stable vital signs. Past Medical History Past Medical History: history CHF describes after historic PNA. Cardiac Medical History: Reports: Hypertension Past Surgical History Past Surgical History: left wrist injursy with surgical repair, tympanoplasty procedure described Social History Smoking Status: Former Smoker Number of Years Smokin - described a short period of smoking in his youth Frequency of Alcohol Use: Social Amount of Alcoholic Beverages Per Day: 2 glasses of wine per day Hx Recreational Drug Use: No Hx Prescription Drug Abuse: No - Advance Directive Resuscitation Status: Full Code Family History Family History: mother had chf and at age 39, father passed at age 74. Parental Family History Reviewed: Yes Children Family History Reviewed: No Sibling(s) Family History Reviewed.: No Medication/Allergy Home Medications: Amlodipine Besylate [Norvasc 10 mg Tablet] 10 mg PO DAILY 03/27/18 Aspirin [Aspirin EC] 81 mg PO DAILY 03/27/18 Hydrochlorothiazide [Hydrodiuril 25 mg Tablet] 25 mg PO QAM 03/27/18 Metoprolol Tartrate [Lopressor 100 mg Tablet] 100 mg PO DAILY 03/27/18 Valsartan [Diovan 160 mg Tablet] 160 mg PO DAILY 03/27/18 Allergies/Adverse Reactions: Penicillins Allergy (Verified 03/26/18 11:45) SWELLING Sulfa (Sulfonamide Antibiotics) Allergy (Verified 03/26/18 11:45) SWELLING Review of Systems Constitutional: ABSENT: fever(s), headache(s) Eyes: ABSENT: visual disturbances Ears: ABSENT: hearing changes Cardiovascular: ABSENT: edema, orthropnea Respiratory: ABSENT: dyspnea Gastrointestinal: PRESENT: abdominal pain. ABSENT: diarrhea, nausea, vomiting Genitourinary: ABSENT: dysuria Musculoskeletal: ABSENT: deformity, joint swelling Integumentary: ABSENT: pruritus, rash Neurological: ABSENT: focal weakness, syncope Psychiatric: ABSENT: anxiety, hallucinations Endocrine: ABSENT: cold intolerance, heat intolerance Hematologic/Lymphatic: ABSENT: easy bruising, lymphadenopathy Physical Exam Vital Signs: Temp Pulse Resp BP Pulse Ox 98.8 F 97 19 126/81 H 97 03/27/18 00:38 03/26/18 10:41 03/27/18 00:41 03/27/18 00:41 03/27/18 00:41 General appearance: PRESENT: cooperative, mild distress Head exam: PRESENT: atraumatic, normocephalic Eye exam: PRESENT: EOMI, PERRLA Ear exam: PRESENT: normal external ear exam. ABSENT: bleeding Mouth exam: PRESENT: moist, neck supple Throat exam: ABSENT: post pharyngeal erythema, tonsillar exudate Neck exam: PRESENT: full ROM. ABSENT: JVD Respiratory exam: ABSENT: accessory muscle use, rales, rhonchi, wheezes Cardiovascular exam: PRESENT: irregular rhythm, +S1, +S2, tachycardia Pulses: PRESENT: normal radial pulses, normal dorsalis pedis pul Vascular exam: PRESENT: normal capillary refill. ABSENT: pallor GI/Abdominal exam: PRESENT: soft, tenderness. ABSENT: ascites, distended, rigid Extremities exam: ABSENT: joint swelling, pedal edema Musculoskeletal exam: PRESENT: ambulatory, full ROM Neurological exam: PRESENT: alert, oriented to person, oriented to place, oriented to time, oriented to situation Psychiatric exam: PRESENT: appropriate affect. ABSENT: agitated, flat affect Focused psych exam: ABSENT: delusional, paranoid Skin exam: PRESENT: normal color. ABSENT: dry, mottled Results Laboratory Results: 03/26/18 11:34 03/26/18 03/26/18 03/26/18 09:29 11:34 11:34 WBC 12.1 H RBC 3.97 L Hgb 12.7 L Hct 37.6 L MCV 95 MCH 32.1 MCHC 33.9 RDW 13.9 Plt Count 543 H Seg Neutrophils % Not Reportable Lymphocytes % Not Reportable Monocytes % Not Reportable Eosinophils % Not Reportable Basophils % Not Reportable Absolute Neutrophils Not Reportable Absolute Lymphocytes Not Reportable Absolute Monocytes Not Reportable Absolute Eosinophils Not Reportable Absolute Basophils Not Reportable Lactic Acid 0.9 TSH 3.28 Impressions: Abdomen/Pelvis CTA 03/26/18 02:43 IMPRESSION: 1. Wedge-shaped areas of hypodensity throughout the right kidney are concerning for ischemic necrosis or late changes of pyelonephritis. Given degree of liquefaction early abscess formation is a possibility however no well-circumscribed thick-walled fluid collection identified at this time. 2. Short segment of wall thickening with adjacent inflammatory change of small bowel in the left upper abdomen concerning for enteritis. This could be of infectious, inflammatory, or ischemic etiology. 3. Diverticulosis without evidence of acute diverticulitis. 4. Cholelithiasis. 5. Coronary artery atherosclerosis and cardiomegaly. 6. No pulmonary embolus. 7. No evidence of aortic dissection or aneurysm. This exam was performed according to our departmental dose-optimization program, which includes automated exposure control, adjustment of the mA and/or kV according to patient size and/or use of iterative reconstruction technique. Chest X-Ray 03/26/18 02:43 IMPRESSION: 1. No acute pulmonary process identified. Cardiomegaly. Chest/Abdomen CTA 03/26/18 02:43 IMPRESSION: 1. Wedge-shaped areas of hypodensity throughout the right kidney are concerning for ischemic necrosis or late changes of pyelonephritis. Given degree of liquefaction early abscess formation is a possibility however no well-circumscribed thick-walled fluid collection identified at this time. 2. Short segment of wall thickening with adjacent inflammatory change of small bowel in the left upper abdomen concerning for enteritis. This could be of infectious, inflammatory, or ischemic etiology. 3. Diverticulosis without evidence of acute diverticulitis. 4. Cholelithiasis. 5. Coronary artery atherosclerosis and cardiomegaly. 6. No pulmonary embolus. 7. No evidence of aortic dissection or aneurysm. This exam was performed according to our departmental dose-optimization program, which includes automated exposure control, adjustment of the mA and/or kV according to patient size and/or use of iterative reconstruction technique. Assessment & Plan - Diagnosis (1) Ischemia of kidney Is this a current diagnosis for this admission?: Yes Plan: Started on Heparin infusion, monitor PTT. transfer to [facility] for vascular surgery support. (2) Atrial fibrillation with rapid ventricular response Is this a current diagnosis for this admission?: Yes Plan: continue Diltiazem infusion giving Metoprolol 12.5mg bid anticoagulation per heparin infusion (3) Abdominal aortic atherosclerosis Is this a current diagnosis for this admission?: Yes Plan: Needs vascular surgery evaluation. Remain on anticoagulation and rate control. will benefit from aspirin and statin therapy (4) Acute abdominal pain Is this a current diagnosis for this admission?: Yes Plan: secondary to embolic injury likely from afib generated thrombosis vs. atherosclerotic disease related emoboli. prn pain medications. (5) Cardiomegaly Is this a current diagnosis for this admission?: Yes Plan: checking TTE. No overt signs of volume overload. - Time Time Spent: 30 to 50 Minutes - Inpatient Certification Based on my medical assessment, after consideration of the patient's comorbidities, presenting symptoms, or acuity I expect that the services needed warrant INPATIENT care.: Yes I certify that my determination is in accordance with my understanding of Medicare's requirements for reasonable and necessary INPATIENT services [42 CFR 412.3e].: Yes Medical Necessity: Need Close Monitoring Due to Risk of Patient Decompensation - Plan Summary Plan Summary: Transfer to tertiary care [place], given his needs for vascular surgery support.
== END 2018-03-26 15:39 | disposition short-term general hospital (02) | DRG 309 ==
LOC: ER 02:23 → EH 07:31
PROVIDERS: ADMIT Internal Medicine; ATTEND Internal Medicine
PROC: 3E0F73Z Introduction of Anti-inflammatory into Respiratory Tract, Via Natural or Artificial Opening (ICD-10-PCS; principal; 2018-03-26)
DX: I48.91 Unspecified atrial fibrillation (principal); N28.0 Ischemia and infarction of kidney; I70.0 Atherosclerosis of aorta; K57.90 Diverticulosis of intestine, part unspecified, without perforation or abscess without bleeding; K80.20 Calculus of gallbladder without cholecystitis without obstruction; I25.10 Atherosclerotic heart disease of native coronary artery without angina pectoris; I10 Essential (primary) hypertension; Z79.899 Other long term (current) drug therapy; Z88.0 Allergy status to penicillin; Z88.2 Allergy status to sulfonamides; Z87.891 Personal history of nicotine dependence; Z82.49 Family history of ischemic heart disease and other diseases of the circulatory system; Z79.82 Long term (current) use of aspirin
CPT/HCPCS: 36415; 71045; 71275; 74174; 80053; 81001; 83605; 83690; 83880; 84443; 84484; 85025; 85610; 85730; 87040; 93005; 93010; 93306; 96361; 96365; 96366; 96368; 96375; 96376; 99285; J0744; J1170; J1644; J3010; J3490; J7030; J7120; S0164

== ENCOUNTER 2019-10-03 08:31 | Day surgery (SDC) | payer MEDICARE, OTHER ==
[~2019-10-03 08:31] MED LIST: PROPOFOL INJ 200 MG/20 ML VIAL IV ONE
[2019-10-03 11:35] VITALS: BP 165/74
--- NOTE | 2019-10-03 12:34 | Operative Report ---
Operative Report DATE OF SURGERY: 10/03/19 Operative Report: The risk, benefits and alternatives of the procedure including the risk of bleeding, perforation requiring surgery have been explained to the patient in detail and informed consent has been obtained. Patient is taken back to the endoscopy suite and placed in a left, lateral decubital position. Timeout was called. Propofol medication is administered. Rectal examination is done which did not reveal any masses, tears or fissures. An Olympus videoscope was introduced into the patient's rectum. Scope was then carefully advanced all the way to the cecum. Cecum was identified by the usual anatomical landmarks including the ileocecal valve as well as the appendiceal office. Photodocumentation is obtained. Scope was then sequentially pulled back via the various segments of the colon including the ascending colon, hepatic flexure, transverse colon, splenic flexure, descending colon finding to the rectosigmoid portions of the colon. Retroflexion maneuvers performed. PREOPERATIVE DIAGNOSIS: Colorectal cancer screening POSTOPERATIVE DIAGNOSIS: Normal screening colonoscopy OPERATION: Diagnostic colonoscopy SURGEON: BAO ARGUETA ANESTHESIA: LMAC TISSUE REMOVED OR ALTERED: None. COMPLICATIONS: None. ESTIMATED BLOOD LOSS: None. INTRAOPERATIVE FINDINGS: Incidental finding of diverticulosis and internal hemorrhoids PROCEDURE: Patient tolerated procedure well. No immediate postprocedure complications are noted. Patient is discharged in good condition. Discharge date 10/03/2019. Discharge diet: Regular. Discharge activity: Regular. 2 to 3-week follow-up to discuss findings. Patient is instructed to call the office or proceed to the emergency room should there be any further problems or questions. 10-year surveillance colonoscopy no family history of colorectal cancer.
== END 2019-10-03 11:32 | disposition home or self-care (01) ==
LOC: END 08:31
PROVIDERS: ATTEND Internal Medicine Gastroenterology
DX: Z12.11 Encounter for screening for malignant neoplasm of colon (principal); K57.30 Diverticulosis of large intestine without perforation or abscess without bleeding; K64.8 Other hemorrhoids; Z79.01 Long term (current) use of anticoagulants; I11.9 Hypertensive heart disease without heart failure; Z79.899 Other long term (current) drug therapy; Z79.82 Long term (current) use of aspirin; Z88.0 Allergy status to penicillin; Z88.2 Allergy status to sulfonamides; E78.2 Mixed hyperlipidemia; I48.91 Unspecified atrial fibrillation; Z87.891 Personal history of nicotine dependence; Z86.73 Personal history of transient ischemic attack (TIA), and cerebral infarction without residual deficits; I34.0 Nonrheumatic mitral (valve) insufficiency
CPT/HCPCS: 00812; G0121; J2704; 45378; 812

== ENCOUNTER → 2020-03-04 | Outpatient (CLI) | payer MEDICARE, OTHER ==
--- NOTE | 2020-03-04 15:30 | RADIOLOGY REPORT (SQ) ---
EXAM DESCRIPTION: CHEST PA/LATERAL IMAGES COMPLETED DATE/TIME: 03/04/2020 3:03 pm REASON FOR STUDY: COUGH COMPARISON: 03/26/2018. EXAM PARAMETERS: NUMBER OF VIEWS: two views TECHNIQUE: Digital Frontal and Lateral radiographic views of the chest acquired. RADIATION DOSE: NA LIMITATIONS: none FINDINGS: LUNGS AND PLEURA: Chronic interstitial changes. No opacities, masses or pneumothorax. No pleural effusion. MEDIASTINUM AND HILAR STRUCTURES: No masses or contour abnormalities. HEART AND VASCULAR STRUCTURES: Heart normal size. No evidence for failure. Ectatic thoracic aorta. BONES: No acute findings. Old rib fractures. Chronic degenerative changes in the spine. HARDWARE: None in the chest. OTHER: No other significant finding. IMPRESSION: CHRONIC CHANGES. NO ACUTE RADIOGRAPHIC FINDING IN THE CHEST. TECHNICAL DOCUMENTATION: JOB ID: [id number] 2010 [employer]- All Rights Reserved Reading location - IP/workstation name: [email or web address]
== END ==
LOC: OD 13:09
PROVIDERS: ATTEND Nurse Practitioner Family
DX: R05 Cough (principal)
CPT/HCPCS: 71046

== ENCOUNTER 2020-04-09 10:06 | Emergency (ER) | payer MEDICARE, OTHER ==
[2020-04-09 12:54] LABS: ABSOLUTE MONOCYTES (AUTO) 0.7 10^3/uL (0.1-1.4); ABSOLUTE NEUT (AUTO) 8.8 10^3/uL (1.7-8.2); BASOPHILS % (AUTO) 0.4 % (0-2); EOSINOPHILS % (AUTO) 0.1 % (0-6); HEMATOCRIT 39.5 % (37.9-51.0); HEMOGLOBIN 13.6 g/dL (13.5-17.0); LYMPHOCYTES % (AUTO) 9.1 % (13-45); MEAN CORPUSCULAR HEMOGLOBIN 32.3 pg (27.0-33.4); MEAN CORPUSCULAR HGB CONC 34.5 g/dL (32.0-36.0); MEAN CORPUSCULAR VOLUME 94 fl (80-97); PLATELET COUNT 350 10^3/uL (150-450); RED BLOOD COUNT 4.23 10^6/uL (4.35-5.55); RED CELL DISTRIBUTION WIDTH 14.3 % (11.5-14.0); SEGMENTED NEUTROPHILS % (AUTO) 83.4 % (42-78); TOTAL CELLS COUNTED % (AUTO) 100 %; WHITE BLOOD COUNT 10.5 10^3/uL (4.0-10.5)
[2020-04-09 13:06] LABS: APPEARANCE,URINE CLEAR; BILIRUBIN,URINE NEGATIVE (NEGATIVE); COLOR,URINE YELLOW; GLUCOSE, URINE NEGATIVE (NEGATIVE); KETONES,URINE 20 mg/dL (NEGATIVE); LEUKOCYTE ESTERASE,URINE NEGATIVE (NEGATIVE); NITRITE,URINE NEGATIVE (NEGATIVE); PROTEIN,URINE 30 mg/dL (NEGATIVE); URINE SPECIFIC GRAVITY 1.024
[2020-04-09 13:14] LABS: ALBUMIN 4.4 g/dL (3.5-5.0); ALKALINE PHOSPHATASE 67 U/L (38-126); ANION GAP 6 (5-19); ASPARTATE AMINO TRANSFERASE 21 U/L (17-59); BILIRUBIN,TOTAL 0.7 mg/dL (0.2-1.3); BLOOD UREA NITROGEN 16 mg/dL (7-20); CARBON DIOXIDE 32 mmol/L (22-30); CHLORIDE 99 mmol/L (98-107); GLUCOSE 115 mg/dL (75-110); POTASSIUM 4.1 mmol/L (3.6-5.0); TOTAL PROTEIN 8.1 g/dL (6.3-8.2)
--- NOTE | 2020-04-09 13:29 | ER Document Report ---
ED Medical Screen (RME) - General Chief Complaint: Abdominal Pain Stated Complaint: ABDOMINAL PAIN, BACK PAIN Primary Care Provider: ANIYA LAM FNP-C [Primary Care Provider] - Follow up as needed Notes: Patient is a 69-year-old white male with a history of atrial fibrillation on Coumadin status post CVA who presents to the emergency department the chief complaint of right upper quadrant pain. He states over 20 years ago he was diagnosed with gallstones and had a "attack" at that point. He states he is not had any issues with this since. He reports last night he began having some right upper quadrant and epigastric pain. States it was associated with some nausea and vomiting. He reports this morning it seems to be subsiding but he was concerned so he came for evaluation. He denies any overt chest pain or shortness of breath. No other complaints or concerns. I have treated and performed a rapid initial assessment of this patient. A comprehensive ED assessment and evaluation of the patient, analysis of test results and completion of medical decision making process will be conducted by additional ED providers. PHYSICAL EXAMINATION: GENERAL: Well-appearing, well-nourished and in no acute distress. A&Ox4. Answe rs questions appropriately. TRAVEL OUTSIDE OF THE [place] IN LAST 30 DAYS: No - Related Data Allergies/Adverse Reactions: Penicillins Allergy (Verified 10/03/19 07:54) SWELLING Sulfa (Sulfonamide Antibiotics) Allergy (Verified 10/03/19 07:54) SWELLING Past Medical History - Social History Frequency of alcohol use: Social - Past Medical History Cardiac Medical History: Reports: Hx Coronary Artery Disease, Hx Hypertension Denies: Hx Heart Attack Pulmonary Medical History: Reports: Hx Pneumonia Denies: Hx Asthma, Hx Bronchitis, Hx COPD Neurological Medical History: Denies: Hx Cerebrovascular Accident, Hx Seizures Renal/ Medical History: Denies: Hx Peritoneal Dialysis Musculoskeltal Medical History: Denies Hx Arthritis - Immunizations Hx Diphtheria, Pertussis, Tetanus Vaccination: Yes Physical Exam - Vital signs Vitals: Temp Pulse Resp BP Pulse Ox 98.6 F 65 20 199/74 H 97 04/09/20 10:19 04/09/20 10:19 04/09/20 10:19 04/09/20 10:04/09/20 10:19 Course - Vital Signs Vital signs: Temp Pulse Resp BP Pulse Ox 98.6 F 65 20 199/74 H 97 04/09/20 10:19 04/09/20 10:19 04/09/20 10:19 04/09/20 10:19 04/09/20 10:19 - Laboratory Result Diagrams: 04/09/20 12:45 04/09/20 12:45 Laboratory results interpreted by me: 04/09/20 04/09/20 04/09/20 12:45 12:45 12:45 RBC 4.23 L RDW 14.3 H Lymph % (Auto) 9.1 L Absolute Neuts (auto) 8.8 H Seg Neutrophils % 83.4 H Carbon Dioxide 32 H Glucose 115 H Urine Protein 30 H Urine Ketones 20 H Urine Urobilinogen 2.0 H Doctor's Discharge - Discharge Referrals: ANIYA LAM FNP-C [Primary Care Provider] - Follow up as needed
--- NOTE | 2020-04-09 15:11 | RADIOLOGY REPORT (SQ) ---
EXAM DESCRIPTION: U/S ABDOMEN LTD W/DOPPLER IMAGES COMPLETED DATE/TIME: 04/09/2020 2:43 pm REASON FOR STUDY: RUQ pain COMPARISON: None. TECHNIQUE: Dynamic and static grayscale images acquired of the abdomen and recorded on PACS. Shabbiro ramses selected color Doppler and spectral images recorded. LIMITATIONS: None. FINDINGS: PANCREAS: Not able to be seen LIVER: No masses. Echotexture normal. LIVER VASCULATURE: Normal directional flow of the main portal vein and hepatic veins. GALLBLADDER: 2.3 cm gallstone. Wall thickness is 8 mm. Trace pericholecystic fluid. ULTRASOUND-DETECTED BRAGG'S SIGN: Negative. INTRAHEPATIC DUCTS AND COMMON DUCT: CBD and intrahepatic ducts normal caliber. No filling defects. AORTA: Atherosclerosis. Proximal aorta is slightly dilated at 3.4 x 3.2 cm. RIGHT KIDNEY: Normal size, 9.9 cm. Normal echogenicity. No solid or suspicious masses. No hydronephr osis. No calcifications. PERITONEAL AND RIGHT PLEURAL SPACE: No ascites or effusions. OTHER: No other significant findings. IMPRESSION: 1. Large stone in the neck of the gallbladder with gallbladder wall thickening and juan josé cholecystic fluid. Concerning for cholecystitis. However, there was a negative sonographic Bragg s ign. 2. Prominent proximal abdominal aorta. Consider chest CT with contrast to evaluate the thoracic aor ta. TECHNICAL DOCUMENTATION: JOB ID: [id number] 2010 [employer] All Rights Reserved Reading location - IP/workstation name: [email or web address]
--- NOTE | 2020-04-09 15:14 | ER Document Report ---
ED General - General Chief Complaint: Abdominal Pain Stated Complaint: ABDOMINAL PAIN, BACK PAIN Time Seen by Provider: 04/09/20 15:13 Primary Care Provider: ANIYA LAM FNP-C [Primary Care Provider] - Follow up as needed Mode of Arrival: Ambulatory Information source: Patient Notes: ED Medical Screen (RME) - General Chief Complaint: Abdominal Pain Stated Complaint: ABDOMINAL PAIN, BACK PAIN Primary Care Provider: ANIYA LAM FNP-C [Primary Care Provider] - Follow up as needed Notes: Patient is a 69-year-old white male with a history of atrial fibrillation on Coumadin status post CVA who presents to the emergency department the chief complaint of right upper quadrant pain. He states over 20 years ago he was diagnosed with gallstones and had a "attack" at that point. He states he is not had any issues with this since. He reports last night he began having some right upper quadrant and epigastric pain. States it was associated with some nausea and vomiting. He reports this morning it seems to be subsiding but he was concerned so he came for evaluation. He denies any overt chest pain or shortness of breath. No other complaints or concerns. my notes 69-year-old male arrives with chief complaint of having right upper quadrant abdominal pain and question of gallbladder attack. Patient reports he was diagnosed with gallbladder problems over 20 years ago was placed on Actigall bear bile.. He stopped taking this a few weeks ago and he had a flareup of his left upper quadrant last night. It is since resolved. His ultrasound today was concerning for gallstone with cholecystitis but patient reports he will follow- up with his surgeon about this. TRAVEL OUTSIDE OF THE [place] IN LAST 30 DAYS: No - HPI Onset: Other - Last night Onset/Duration: Sudden, Better Quality of pain: Achy Severity: Mild Pain Level: 1 Associated symptoms: None Exacerbated by: Denies Relieved by: Denies Similar symptoms previously: No Recently seen / treated by doctor: No - Related Data Allergies/Adverse Reactions: Penicillins Allergy (Verified 10/03/19 07:54) SWELLING Sulfa (Sulfonamide Antibiotics) Allergy (Verified 10/03/19 07:54) SWELLING Past Medical History - General Information source: Patient - Social History Smoking Status: Never Smoker Cigarette use (# per day): No Chew tobacco use (# tins/day): No Smoking Education Provided: No Frequency of alcohol use: Social Drug Abuse: None Lives with: Family Family History: Reviewed & Not Pertinent Patient has suicidal ideation: No Patient has homicidal ideation: No - Past Medical History Cardiac Medical History: Reports: Hx Coronary Artery Disease, Hx Hypertension Denies: Hx Heart Attack Pulmonary Medical History: Reports: Hx Pneumonia Denies: Hx Asthma, Hx Bronchitis, Hx COPD Neurological Medical History: Denies: Hx Cerebrovascular Accident, Hx Seizures Renal/ Medical History: Denies: Hx Peritoneal Dialysis Musculoskeletal Medical History: Denies Hx Arthritis - Immunizations Hx Diphtheria, Pertussis, Tetanus Vaccination: Yes Review of Systems - Review of Systems Constitutional: No symptoms reported EENT: No symptoms reported Cardiovascular: No symptoms reported Respiratory: No symptoms reported Gastrointestinal: See HPI, Abdominal pain, Nausea Genitourinary: No symptoms reported Male Genitourinary: No symptoms reported Musculoskeletal: No symptoms reported Skin: No symptoms reported Hematologic/Lymphatic: No symptoms reported Neurological/Psychological: No symptoms reported Physical Exam - Vital signs Vitals: Temp Pulse Resp BP Pulse Ox 98.6 F 65 20 199/74 H 97 04/09/20 10:19 04/09/20 10:19 04/09/20 10:19 04/09/20 10:19 04/09/20 10:19 Interpretation: Hypertensive - General General appearance: Appears well - HEENT Head: Normocephalic - Was only 2, Atraumatic Eyes: Normal Pupils: PERRL Nasal: Normal Mouth/Lips: Normal Mucous membranes: Normal Pharynx: Normal Neck: Normal - Respiratory Respiratory status: No respiratory distress Chest status: Nontender Breath sounds: Normal Chest palpation: Normal - Cardiovascular Rhythm: Regular Heart sounds: Normal auscultation Murmur: No - Abdominal Inspection: Normal Distension: No distension Bowel sounds: Normal Tenderness: Tender - LUQ abdomen Organomegaly: No organomegaly - Rectal Hemorrhoids: Other - deferred - Genitourinary Scrotum: Other - deferred - Back Back: Normal - Extremities General upper extremity: Normal inspection General lower extremity: Normal inspection - Neurological Neuro grossly intact: Yes Cognition: Normal Orientation: AAOx4 [place] Coma Scale Eye Opening: Spontaneous [place] Coma Scale Verbal: Oriented [place] Coma Scale Motor: Obeys Commands [place] Coma Scale Total: 15 Speech: Normal Motor strength normal: LUE, RUE, LLE, RLE Sensory: Normal - Psychological Associated symptoms: Normal affect - Skin Skin Temperature: Warm Skin Moisture: Dry Course - Vital Signs Vital signs: Temp Pulse Resp BP Pulse Ox 98.6 F 65 20 199/74 H 97 04/09/20 10:19 04/09/20 10:19 04/09/20 10:19 04/09/20 10:19 04/09/20 10:19 - Laboratory Result Diagrams: 04/09/20 12:45 04/09/20 12:45 Laboratory results interpreted by me: 04/09/20 04/09/20 04/09/20 12:45 12:45 12:45 RBC 4.23 L RDW 14.3 H Lymph % (Auto) 9.1 L Absolute Neuts (auto) 8.8 H Seg Neutrophils % 83.4 H Carbon Dioxide 32 H Glucose 115 H Urine Protein 30 H Urine Ketones 20 H Urine Urobilinogen 2.0 H - Diagnostic Test Radiology reviewed: Reports reviewed Critical Care Note - Critical Care Note Total time excluding time spent on procedures (mins): 60 Comments: I advised patient of his laboratory reports and of his ultrasound and advised patient to follow-up with surgeon of choice. He did not want to stay in the hospital he Discharge - Discharge Clinical Impression: Cholecystitis, Hypertension Condition: Good Disposition: HOME, SELF-CARE Instructions: Gallbladder Disease (OM) Additional Instructions: Follow-up with surgeon like Dr. Johnson outpatient and also follow-up with your personal doctor about your hypertension. Take your medicines as directed. Continue taking Actigall for your gallbladder and blood pressure medicine for your blood pressure. You may return to ER if symptoms persist or worsen. Today your lab reports or normal , but ultrasound was concerning for cholecystitis Referrals: ANIYA LAM FNP-C [Primary Care Provider] - Follow up as needed
[2020-04-09 15:51] VITALS: BP 194/76
--- NOTE | 2020-04-09 19:20 | EKG REPORT ---
SEVERITY:- ABNORMAL ECG - SINUS RHYTHM NONSPECIFIC IVCD WITH LAD LVH WITH SECONDARY REPOLARIZATION ABNORMALITY ANTERIOR Q WAVES, POSSIBLY DUE TO LVH : Confirmed by: Garcia Shaikh 09-Apr-2020 19:19:38
== END 2020-04-09 15:37 | disposition home or self-care (01) ==
LOC: ER 10:06
DX: K81.9 Cholecystitis, unspecified (principal); I10 Essential (primary) hypertension; R10.11 Right upper quadrant pain; R11.2 Nausea with vomiting, unspecified; M54.9 Dorsalgia, unspecified; Z88.0 Allergy status to penicillin; Z88.2 Allergy status to sulfonamides
CPT/HCPCS: 36415; 76705; 80053; 81001; 83690; 84484; 85025; 93005; 93010; 93976; 99291